=== PATIENT | male | born 1995 | race Caucasian/White ===

== ENCOUNTER 2022-05-15 14:45 | Outpatient (CLI) | payer BC | END 2022-05-15 14:46 | disposition home or self-care (01) | LOC: CSHRAD 14:45 | PROVIDERS: ATTEND Student in an Organized Health Care Education/Training Program | DX: M25.561 Pain in right knee (principal) ==

== ENCOUNTER 2022-08-11 07:34 | Outpatient (CLI) | payer OTHER | END 2022-08-11 07:35 | disposition home or self-care (01) | LOC: CSHULT 07:34 | PROVIDERS: ATTEND Student in an Organized Health Care Education/Training Program | DX: R10.11 Right upper quadrant pain (principal); K80.20 Calculus of gallbladder without cholecystitis without obstruction | CPT/HCPCS: 76700 ==